=== PATIENT | female | born 1985 | race Asian ===

== ENCOUNTER 2016-11-07 14:28 | Emergency (ER) | payer OTHER ==
[2016-11-07 14:47] VITALS: BP 113/72; PULSE 81; TEMP 98.3; BMI 18.7
--- NOTE | 2016-11-07 15:06 | PDOC ---
History of Present Illness - General Chief Complaint: Weakness Stated Complaint: BLOOD SUGAR LOW Time Seen by Provider: 11/07/16 14:33 - History of Present Illness Initial Comments: 11/07/16 15:01 Patient is a 31 year old female with no PMH who presents with concerns for hand and feet tingling, heart palpitations, and dizziness. The patient reports that she was in a park and began having a sensation that her heart was pounding and tingling in her feet and hands with associated dizziness prompting her visit to the ED today. She states that she feels like her blood sugar is low and states that she has not eaten anything today. She denies chest pain, abdominal pain, weakness, headache, or changes with bowel movements or urination. Past History - Past Medical History Allergies/Adverse Reactions: Allergies Allergy/AdvReac Type Severity Reaction Status Date / Time No Known Allergies Allergy Verified 11/07/16 14:45 Home Medications: Ambulatory Orders NK [No Known Home Medication] 11/07/16 Other medical history: none - Psycho/Social/Smoking Cessation Hx Anxiety: No Suicidal Ideation: No Smoking History: Never smoked Have you smoked in the past 12 months: No Information on smoking cessation initiated: No Hx Alcohol Use: No Drug/Substance Use Hx: No Substance Use Type: None Review of Systems - Review of Systems Constitutional: No: Chills, Fever HEENTM: No: Recent change in vision, Double Vision Respiratory: Yes: Shortness of Breath. No: Cough Cardiac (ROS): Yes: Palpitations. No: Chest Pain, Lightheadedness ABD/GI: No: Constipated, Diarrhea, Nausea, Vomiting : No: Burning, Dysuria Integumentary: No: Rash Neurological: Yes: Tingling. No: Headache, Numbness, Weakness *Physical Exam - Vital Signs Last Vital Signs Temp Pulse Resp BP Pulse Ox 98.3 F 81 18 113/72 100 11/07/16 14:45 11/07/16 14:45 11/07/16 14:45 11/07/16 14:45 11/07/16 14:51 - Physical Exam Comments: 11/07/16 15:06 General Appearance: Nourished. No Apparent Distress HEENT: EOMI, BEATRIS. No Pharyngeal Erythema, Tonsillar Exudate, Tonsillar Erythema Respiratory/Chest: Lungs Clear, Normal Breath Sounds. No Crackles, Rales, Rhonchi, Wheezing Cardiovascular: Regular Rhythm, Regular Rate. No Murmur, Gallop/S3, Gallop/S4 Gastrointestinal/Abdominal: Normal Bowel Sounds, Soft. No Guarding, Rebound, Tenderness Musculoskeletal: Normal Inspection. 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 Given the patient's normal physical exam and history of pounding heart with hyperventilation, dizziness and tingling, it is likely her symptoms are due to an anxiety attack. POC glucose was 121 ruling out hypoglycemia. We discussed the results with the patient and feel comfortable discharging her home. The patient voiced understanding and is agreeable with the plan. *DC/Admit/Observation/Transfer Diagnosis at time of Disposition: Anxiety attack - Discharge Dispostion Disposition: HOME Condition at time of disposition: Improved Admit: No - Patient Instructions Printed Discharge Instructions: DI for Anxiety -- Adult, DI for Panic Disorder Additional Instructions: Please return to the ER if you experience concerning or worsening symptoms. Please follow up with your primary care provider to discuss your ER visit. Your symptoms are likely due to an anxiety attack. Your sugar level was normal here in the ER.
--- NOTE | 2016-11-07 15:14 | PDOC ---
Attending Attestation - Resident Resident Name: Yadiel Johnson - ED Attending Attestation I have performed the following: I have examined & evaluated the patient, The case was reviewed & discussed with the resident, I agree w/resident's findings & plan, Exceptions are as noted - HPI HPI: 11/07/16 15:11 31 year old female with no past medical history presents with dizziness. 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 She did not eat any breakfast or any food. Was working outside all day when she starting to feel dizzy and lightheaded. Never endorsed chest pain or shortness of breath. She felt tingling in all of her fingers and toes and became anxious. The patient had then taken a piece of candy and called 911. Pt denies hx of DM. Upon arrival to the ED, the patient reported that she started feeling better here after eating the candy. Her FS is now 122. Denies symptoms now. - Physicial Exam PE: 11/07/16 15:13 GENERAL: Awake, alert, and fully oriented, in no acute distress. HEAD: No signs of trauma EYES: PERRLA, EOMI, sclera anicteric, conjunctiva clear ENT: Auricles normal inspection, hearing grossly normal, nares patent, oropharynx clear without exudates. NECK: Normal ROM, supple, no lymphadenopathy, JVD, or masses LUNGS: Breath sounds equal, clear to auscultation bilaterally. No wheezes, and no crackles HEART: Regular rate and rhythm, normal S1 and S2, no murmurs, rubs or gallops ABDOMEN: Soft, nontender, normoactive bowel sounds. No guarding, no rebound. No masses EXTREMITIES: Normal range of motion, no edema. No clubbing or cyanosis. No cords, erythema, or tenderness NEUROLOGICAL: Cranial nerves II through XII grossly intact. Normal speech, normal gait SKIN: Warm, Dry, normal turgor, no rashes or lesions noted. - Medical Decision Making 11/07/16 15:13 Vital Signs Temp Pulse Resp BP Pulse Ox 98.3 F 81 18 113/72 100 11/07/16 14:45 11/07/16 14:45 11/07/16 14:45 11/07/16 14:45 11/07/16 14:51 The patient likely dizzy and lightheaded secondary to not eating today and possibly hypoglycemia. Pt became anxious and feels better now after being here in ED. After the candy, her FS is now 122. Pt is tolerating PO here and feels well and would like to go home. Pt denies abdominal pain or being . I concur that the patient can be discharged. Return precautions given including feinting, chest pain.
== END 2016-11-07 15:27 | disposition home or self-care (01) ==
LOC: JER 14:28
DX: F41.0 Panic disorder [episodic paroxysmal anxiety] (principal)
CPT/HCPCS: 99283-25